=== PATIENT | male | born 1980 ===

== ENCOUNTER 2017-04-26 22:46 | Emergency (ER) | payer MEDICAID, OTHER ==
[2017-04-26 22:56] VITALS: BP 128/101
[2017-04-26] MEDS ORDERED: methylPREDNISolone Sodium Succinate 125 MG/2 ML SDV IM ONE (23:14)
--- NOTE | 2017-04-26 23:21 | EDM.PDOC ---
ED HPI GENERAL MEDICAL PROBLEM - General Chief Complaint: Lower Extremity Injury/Pain Stated Complaint: RIGHT LEG PAIN Time Seen by Provider: 04/26/17 22:53 Source of Information: Reports: Patient History Limitations: Reports: No Limitations - History of Present Illness INITIAL COMMENTS - FREE TEXT/NARRATIVE: This is a 37-year-old male. He comes tonight because he having this burning pain down his right leg into his foot. 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 He states the tumor was about 5 pounds and when they took it out totally might get some nerve damage. He comes to the ER tonight because of the burning sensation down his right leg. Patient admits to taking OxyContin 20 mg twice a day and when I looked on the [place] drug monitoring site he has been receiving this for quite some time and his last prescription was filled on April 17 for 60 OxyContin 20 mg and 30 Percocet 5 mg. I explained to the patient that I cannot add to his pain medication at this time since I did not want to interfere with his pain contract. However I think that a course of steroids and may be some gabapentin might help with his nerve pain. I also suggested that he might want to call the surgeon and see if they might have some other remedies that might help with his nerve pain. Right Leg Pain Score (Numeric/FACES): 8 - Related Data Allergies Allergy/AdvReac Type Severity Reaction Status Date / Time No Known Allergies Allergy Verified 06/21/16 12:52 Home Meds: Home Meds Amphetamine/Dextroamphetamine [Adderall XR] 30 mg PO DAILY 06/27/15 [History] Gabapentin [Neurontin] 300 mg PO DAILY #20 cap 04/26/17 [Rx] oxyCODONE ER [OxyCONTIN] 20 mg PO Q12HR 04/26/17 [History] predniSONE [Prednisone] 20 mg PO QAM #5 tablet 04/26/17 [Rx] Past Medical History Respiratory History: Reports: Pneumothorax Musculoskeletal History: Reports: Other (See Below) Psychiatric History: Reports: ADD Dermatologic History: Reports: Other (See Below) Other Dermatologic History: MRSA to face - Infectious Disease History Infectious Disease History: Reports: MRSA - Past Surgical History HEENT Surgical History: Reports: Other (See Below) Respiratory Surgical History: Reports: Other (See Below) Musculoskeletal Surgical History: Reports: Other (See Below) Social & Family History - Tobacco Use Smoking Status *Q: Light Tobacco Smoker Years of Tobacco use: 15 Packs/Tins Daily: 1 Second Hand Smoke Exposure: No - Caffeine Use Caffeine Use: Reports: Soda - Recreational Drug Use Recreational Drug Use: No - Living Situation & Occupation Living situation: Reports: Single, Alone Occupation: Employed Review of Systems - Review of Systems Review Of Systems: See Below Constitutional: Denies: Chills, Fever Eyes: Reports: No Symptoms Ears: Reports: No Symptoms Nose: Reports: No Symptoms Mouth/Throat: Reports: No Symptoms Respiratory: Reports: No Symptoms Cardiovascular: Reports: No Symptoms GI/Abdominal: Reports: No Symptoms Genitourinary: Reports: No Symptoms Musculoskeletal: Reports: Other (As per history of present illness) Skin: Reports: Other (Well-healed surgical scars on his right buttocks and suprapubic area) Neurological: Reports: Other (As per history of present illness) Psychiatric: Reports: No Symptoms ED EXAM, GENERAL - Physical Exam Exam: See Below Exam Limited By: No Limitations General Appearance: Alert, WD/WN, No Apparent Distress Eye Exam: Bilateral Eye: Normal Inspection Ears: Normal External Exam Nose: Normal Inspection Throat/Mouth: Normal Lips, Normal Voice Head: Normocephalic Neck: Normal Inspection, Supple Respiratory/Chest: No Respiratory Distress, Lungs Clear, Normal Breath Sounds Cardiovascular: Regular Rate, Rhythm, No Murmur GI/Abdominal: Other (Noted in the suprapubic midline area there is a healing surgical scar, there is no evidence of infection no drainage noted) Back Exam: Normal Inspection, Other (He has a surgical scar that seems to go from the upper right buttocks around the lateral side and slightly down into his upper thigh, it is well healed with no evidence of infection no drainage, he is somewhat tender over the surgical area on palpation but there is no swelling and no redness) Extremities: Normal Inspection, Normal Range of Motion, Other (Patient does not appear to have a limp when he walks) Neurological: Alert, Oriented, Other (He complains of burning pain down the back side of his right leg into his feet and toes) Psychiatric: Normal Affect, Normal Mood Skin Exam: Warm, Dry Course - Vital Signs Last Recorded V/S: Last Vital Signs Temp 97.8 F 04/26/17 22:53 Pulse 88 04/26/17 22:53 Resp 19 04/26/17 22:53 BP 128/101 H 04/26/17 22:53 Pulse Ox 100 04/26/17 22:53 - Orders/Labs/Meds Orders: Active Orders 24 hr Category Date Time Status methylPREDNISolone Sod Succ [Solu-MEDROL] Med 04/26/17 23:14 Once 125 mg IM ONETIME ONE Departure - Departure Time of Disposition: 23:23 Disposition: Home, Self-Care 01 Condition: Good 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, Pain in right leg - Discharge Information Prescriptions: Gabapentin [Neurontin] 300 mg PO DAILY #20 cap predniSONE [Prednisone] 20 mg PO QAM #5 tablet Forms: ED Department Discharge Additional Instructions: Call the surgeon on Saturday regarding your right leg pain to see if they have any other suggestions to help with the nerve pain, be certain to follow-up on the with them for reevaluation and recheck, continue with your OxyContin 20 mg twice a day and use the Percocet you have as prescribed, take the prednisone starting on Saturday once a day for the next 5 days, start the gabapentin as soon as you get it to help with your nerve pain and I only gave you enough to last through the whe you see the surgeons and see if they would want to continue you on this medication, follow-up with your family doctor as needed, return to the ER if needed - My Orders Last 24 Hours: My Active Orders 04/26/17 23:14 methylPREDNISolone Sod Succ [Solu-MEDROL] 125 mg IM ONETIME ONE - Assessment/Plan Last 24 Hours: My Active Orders 04/26/17 23:14 methylPREDNISolone Sod Succ [Solu-MEDROL] 125 mg IM ONETIME ONE
== END 2017-04-26 23:39 | disposition home or self-care (01) ==
LOC: JD.ED 22:46
DX: G62.9 Polyneuropathy, unspecified (principal); Z79.899 Other long term (current) drug therapy; F98.8 Other specified behavioral and emotional disorders with onset usually occurring in childhood and adolescence; Z86.14 Personal history of Methicillin resistant Staphylococcus aureus infection; F17.210 Nicotine dependence, cigarettes, uncomplicated
CPT/HCPCS: 96372; 99283; J2930

== ENCOUNTER 2017-06-28 15:30 | Emergency (ER) | payer MEDICAID ==
[2017-06-28 15:50] VITALS: BP 132/78
[2017-06-28] MEDS ORDERED: Ketorolac 60 MG/2 ML SDV IM ONE (16:28)
--- NOTE | 2017-06-28 16:39 | EDM.PDOC ---
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 This is been going on for at least the last year and a half. Reports in March he was at [facility] in [place] for a tumor removal. He was seen by infectious disease at that time. He was put on Bactrim and instructed to take for the next year, began early March. He states that he stopped this towards the end of March. He is currently complaining of pus and drainage from the multiple wounds on his scalp. Reports severe pain. Reports associated symptoms of chills , shakes and nausea. No vomiting. He states that he has felt feverish but has not taken his temperature. 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 No primary care provider in [place]. Of note patient has been seen in the ER on multiple occasions for this. Last culture was done June 21, 2016. At that time it was susceptible to Bactrim. Culture did grow out MRSA. Head Pain Score (Numeric/FACES): 8 - Related Data Allergies Allergy/AdvReac Type Severity Reaction Status Date / Time No Known Allergies Allergy Verified 06/28/17 15:50 Home Meds: Home Meds Amphetamine/Dextroamphetamine [Adderall XR] 30 mg PO BID 06/27/15 [History] oxyCODONE ER [OxyCONTIN] 20 mg PO Q12HR 04/26/17 [History] Past Medical History Respiratory History: Reports: Pneumothorax Musculoskeletal History: Reports: Other (See Below) Psychiatric History: Reports: ADD Oncologic (Cancer) History: Reports: Other (See Below) Other Oncologic History: lyposarcoma right hip Dermatologic History: Reports: Other (See Below) Other Dermatologic History: MRSA to face - Infectious Disease History Infectious Disease History: Reports: MRSA - Past Surgical History HEENT Surgical History: Reports: Other (See Below) GI Surgical History: Reports: Appendectomy Musculoskeletal Surgical History: Reports: Other (See Below) Other Musculoskeletal Surgeries/Procedures:: tumor removal from right hip area Oncologic Surgical History: Reports: Lumpectomy Social & Family History - Tobacco Use Smoking Status *Q: Unknown Ever Smoked Years of Tobacco use: 15 Packs/Tins Daily: 1 Second Hand Smoke Exposure: No - Caffeine Use Caffeine Use: Reports: Soda - Recreational Drug Use Recreational Drug Use: No - Living Situation & Occupation Living situation: Reports: Single, Alone Occupation: Employed ED ROS GENERAL - Review of Systems Review Of Systems: See Below Constitutional: Reports: Chills, Malaise. Denies: Fever GI/Abdominal: Reports: Nausea. Denies: Vomiting Skin: Reports: Wound (cysts to the scalp, crusted over; reports severe pain) ED EXAM, SKIN/RASH Exam: See Below Exam Limited By: No Limitations General Appearance: Alert, WD/WN, No Apparent Distress Ears: Normal External Exam Nose: Normal Inspection Throat/Mouth: Normal Inspection, Normal Voice, No Airway Compromise Respiratory/Chest: No Respiratory Distress, Lungs Clear, Normal Breath Sounds Cardiovascular: Normal Peripheral Pulses, Regular Rate, Rhythm, No Murmur Neurological: Alert, Oriented, Normal Cognition Psychiatric: Normal Affect, Normal Mood Skin: Warm, Dry, Wound/Incision (about 6 crusted areas to the scalp all around 1 -2 cm in diameter; no celulitis appreciated) Location, Skin: Head (scalp and posterior neck) Associated features: Tenderness, Crusting Course - Vital Signs Last Recorded V/S: Last Vital Signs Temp 36.9 C 06/28/17 15:46 Pulse 98 06/28/17 15:46 Resp 18 06/28/17 15:46 BP 132/78 06/28/17 15:46 Pulse Ox 99 06/28/17 15:46 - Orders/Labs/Meds Orders: Active Orders 24 hr Category Date Time Status CULTURE WOUND [RM] Stat Lab 06/28/17 17:54 Received Labs: Laboratory Tests 06/28/17 06/28/17 Range/Units 16:51 16:51 WBC 6.46 (4.23-9.07) K/mm3 RBC 5.45 (4.63-6.08) M/mm3 Hgb 12.4 L (13.7-17.5) gm/L Hct 40.1 (40.1-51.0) % MCV 73.6 L (79.0-92.2) fl MCH 22.8 L (25.7-32.2) pg MCHC 30.9 L (32.2-35.5) g/dl RDW Std Deviation 44.7 H (35.1-43.9) fL Plt Count 352 H (163-337) K/mm3 MPV 9.7 (9.4-12.3) fl Neutrophils % (Manual) 62 H (40-60) % Band Neutrophils % 0 (0-10) % Lymphocytes % (Manual) 32 (20-40) % Atypical Lymphs % 0 % Monocytes % (Manual) 1 L (2-10) % Eosinophils % (Manual) 4 (0.8-7.0) % Basophils % (Manual) 1 (0.2-1.2) Platelet Estimate Adequate Plt Morphology Comment Normal RBC Morph Comment Normal Sodium 142 (136-145) mEq/L Potassium 4.1 (3.5-5.1) mEq/L Chloride 107 (98-107) mEq/L Carbon Dioxide 28 (21-32) mEq/L Anion Gap 11.1 (5-15) BUN 12 (7-18) mg/dL Creatinine 1.1 (0.7-1.3) mg/dL Est Cr Clr Drug Dosing TNP Estimated GFR (MDRD) > 60 (>60) mL/min BUN/Creatinine Ratio 10.9 L (14-18) Glucose 92 (74-106) mg/dL Calcium 9.0 (8.5-10.1) mg/dL C-Reactive Protein 2.2 H* (<1.0) mg/dL Meds: Medications Discontinued Medications Generic Name Dose Route Start Last Admin Trade Name Freq PRN Reason Stop Dose Admin Ketorolac Tromethamine 60 mg 06/28/17 16:28 06/28/17 16:34 Toradol IM 06/28/17 16:29 60 mg ONETIME ONE Administration - Re-Assessments/Exams Free Text/Narrative Re-Assessment/Exam: 06/28/17 17:04 Patient was searched on the [place] perception drug registry. He has received 61 prescriptions from 12 different prescribers for controlled substances within the last year. Mostly recently received morphine IR 15 mg #30 on 06-17-17. This is a 15 day supply. No prescription for oxycodone listed since 04/17/17. 06/28/17 17:46 labs returned. culture obtained to confirm bactrim will continue to work. crp is slightly elevated at 2.2 which is decreased compared to prior crps. will discharge home. Discharge instructions as documented. Departure - Departure Time of Disposition: 17:46 Disposition: Home, Self-Care 01 Condition: Good Clinical Impression: MRSA cellulitis - Discharge Information Instructions: MRSA Infection, Adult Referrals: PCP,Not In Area [Primary Care Provider] - Kimberly Holland NP [Ordering Only Provider] - Forms: ED Department Discharge Additional Instructions: I recommend you restart your Bactrim. Take this for the next year as recommended by infectious disease. The culture from today's visit will take several days to come back. We will notify you if you need a change in your antibiotics. If you do not hear from us assume, that the MRSA is susceptible to the Bactrim. Continue with your current medications. you may continue taking your morphine for pain. If you need any additional pain relief [id number] Tylenol or Motrin. Recommend using a warm compress to the areas for additional pain relief. Follow-up with your primary care provider within 2 weeks for recheck of your symptoms. Please return to the ER if your symptoms change or worsen. - My Orders Last 24 Hours: My Active Orders 06/28/17 17:54 CULTURE WOUND [RM] Stat - Assessment/Plan Last 24 Hours: My Active Orders 06/28/17 17:54 CULTURE WOUND [RM] Stat
== END 2017-06-28 17:55 | disposition home or self-care (01) ==
LOC: JD.ED 15:30
DX: L03.811 Cellulitis of head [any part, except face] (principal); L03.221 Cellulitis of neck; B95.62 Methicillin resistant Staphylococcus aureus infection as the cause of diseases classified elsewhere; Z90.49 Acquired absence of other specified parts of digestive tract
CPT/HCPCS: 36415; 80048; 85025; 86140; 87070; 96372; 99283; J1885; 87077; 87186

== ENCOUNTER 2017-11-10 11:25 | Emergency (ER) | payer MEDICAID ==
[2017-11-10 11:36] VITALS: BP 131/100
--- NOTE | 2017-11-10 12:03 | EDM.PDOC ---
ED HPI GENERAL MEDICAL PROBLEM - General Chief Complaint: Back Pain or Injury Stated Complaint: RIGHT SCIATIC PAIN Time Seen by Provider: 11/10/17 11:40 Source of Information: Reports: Patient - History of Present Illness INITIAL COMMENTS - FREE TEXT/NARRATIVE: Avel is a 37yo male here with complaints of rt sided back and leg pain. He is s/p liposarcoma resection in February of 2017 at [facility] in [place] that he states was a 5lb tumor. He was on Morphine then transitioned to tramadol. He is scheduled with Pain Management in [place], who is "reviewing his chart and they are supposed to get back to me". He is very frustrated with this. He has contacted both [facility] and [facility] with referrals into both of them. He states [place] told him he needs to have PCP or pain management take over his pain medications. He ran out of Tramadol on Sat or of this week. Cold weather exacerbates his pain. He is "miserable" yesterday and today without the tramadol. He is frustrated as he is unable to get pain medications as he tries to establish care for refills of tramadol until he can get into Pain Management. He has been doing this for 3 weeks and states will get a week of pain medications and "that's it". Essentially he is searching for a PCP who will provide pain medications, tramadol, for him until he can get into Pain Management. Location: Reports: Back, Upper Extremity, Right Quality: Reports: Dull, Sharp (if he moves wrong or steps wrong), Throbbing Severity: Moderate Improves with: Reports: Medication Worsens with: Reports: Movement (pressure onto his rt buttock with sitting) Context: Reports: Activity, Lifting Associated Symptoms: Reports: Other (sciatica/pain down his rt leg) Right Lower Back Pain Score (Numeric/FACES): 7 - Related Data Allergies Allergy/AdvReac Type Severity Reaction Status Date / Time No Known Allergies Allergy Verified 11/10/17 11:30 Home Meds: Home Meds Amphetamine/Dextroamphetamine [Adderall XR] 30 mg PO BID 06/27/15 [History] Past Medical History Respiratory History: Reports: Pneumothorax Musculoskeletal History: Reports: Other (See Below) Psychiatric History: Reports: ADD Oncologic (Cancer) History: Reports: Other (See Below) Other Oncologic History: lyposarcoma right hip Dermatologic History: Reports: Other (See Below) Other Dermatologic History: MRSA to face - Infectious Disease History Infectious Disease History: Reports: MRSA - Past Surgical History HEENT Surgical History: Reports: Other (See Below) GI Surgical History: Reports: Appendectomy Musculoskeletal Surgical History: Reports: Other (See Below) Other Musculoskeletal Surgeries/Procedures:: tumor removal from right hip area Oncologic Surgical History: Reports: Lumpectomy Social & Family History - Tobacco Use Smoking Status *Q: Unknown Ever Smoked Years of Tobacco use: 20 Packs/Tins Daily: 1 Second Hand Smoke Exposure: No - Caffeine Use Caffeine Use: Reports: Soda - Recreational Drug Use Recreational Drug Use: No - Living Situation & Occupation Living situation: Reports: Single, Alone Occupation: Employed ED ROS GENERAL - Review of Systems Review Of Systems: See Below Constitutional: Reports: No Symptoms Respiratory: Reports: No Symptoms Cardiovascular: Reports: No Symptoms GI/Abdominal: Reports: No Symptoms Musculoskeletal: Reports: Back Pain, Leg Pain Neurological: Reports: Numbness, Paresthesia Psychiatric: Reports: No Symptoms ED EXAM,LOWER BACK PAIN/INJURY - Physical Exam Exam: See Below Exam Limited By: No Limitations General Appearance: Alert, WD/WN, No Apparent Distress Eye Exam: Bilateral Eye: EOMI, PERRL Ears: Normal External Exam, Hearing Grossly Normal Nose: Normal Inspection Throat/Mouth: Normal Inspection, Normal Lips, Normal Teeth Head: Atraumatic, Normocephalic Neck: Normal Inspection Respiratory/Chest: No Respiratory Distress, Lungs Clear, Normal Breath Sounds Cardiovascular: Normal Peripheral Pulses, Regular Rate, Rhythm, No Edema (Male) Exam: Deferred Rectal (Males) Exam: Deferred Back Exam: Other (large healed incision, scar to right flank across buttock and into hamstring area; also anterior scar from umbilicus to pubic bone. ) Extremities: Normal Inspection, Other (muscle wasting to lower right leg compared to left side.) Neurological: Alert, Normal Mood/Affect, Oriented x 3, Other (? irritable) DTR - Lower Extremities: 1+: Knee (R), 2+: Knee (L) Psychiatric: Normal Affect, Normal Mood, Other (? irritable) Skin Exam: Other (scar as noted above) Course - Vital Signs Last Recorded V/S: Last Vital Signs Temp 97.4 F 11/10/17 11:32 Pulse 108 H 11/10/17 11:32 Resp 18 11/10/17 11:32 BP 131/100 H 11/10/17 11:32 Pulse Ox 100 11/10/17 11:32 - Re-Assessments/Exams Free Text/Narrative Re-Assessment/Exam: 11/10/17 12:22 Avel has hx of tumor resection 8 months ago at [facility]. He is in need of refills of pain medications today, tramadol. I will renew these for 2 week time frame. He need to call Pain Management clinic on Saturday. He also needs to establish care with PCP for neuropathy treatment and following of this tumor and coordination of care from [facility]. Departure - Departure Time of Disposition: 12:24 Disposition: Home, Self-Care 01 Condition: Good, Poor Clinical Impression: Pain in right leg, Neuropathy of right lower extremity Sciatica Qualifiers: Laterality: right Qualified Code(s): M54.31 - Sciatica, right side - Discharge Information Instructions: Back Pain, Adult, [id number] Referrals: PCP,None [Primary Care Provider] - Forms: ED Department Discharge Additional Instructions: Follow up with PCP, establish care, early next week for pain management until he is able to establish with actual Pain Management- referrals have been made to both pain management clinics, [facility] and [facility]. You will need follow up with Neurology or someone for nerve pain as well. You will need someone to coordinate care with [facility] for follow up for resection of this large tumor. Tramadol rx provided today for 2 weeks. List of providers for the clinic is provided for you to establish care.
== END 2017-11-10 12:35 | disposition home or self-care (01) ==
LOC: JD.ED 11:25
DX: M54.41 Lumbago with sciatica, right side (principal); G57.91 Unspecified mononeuropathy of right lower limb
CPT/HCPCS: 99283